=== PATIENT | female | born 1990 | race Caucasian/White ===

== ENCOUNTER 2017-05-23 20:25 | Emergency (ER) | payer OTHER ==
[2017-05-23 20:42] VITALS: BP 125/76; PULSE 78; TEMP 98.1; BMI 41.3
[2017-05-23] MEDS ORDERED: ACETAMINOPHEN 325 MG TABLET (FP) ONE (21:54)
[2017-05-23] MEDS ORDERED: ACETAMINOPHEN 500 MG TABLET (FP) PO ONE (21:58)
--- NOTE | 2017-05-23 22:03 | PDOC ---
History of Present Illness - General Chief Complaint: Chest Pain Stated Complaint: CHEST PAIN Time Seen by Provider: 05/23/17 21:45 History Source: Patient Exam Limitations: No Limitations - History of Present Illness Initial Comments: 05/23/17 21:59 27-year-old female presents to the ED with intermittent left-sided chest pain which she describes a sharp worsened with deep respiration or movement. Patient states has had this pain before but normally resolves within a few hours. Patient states has had this pain since this morning and denies any palpitations , dizziness, nausea, chest pressure, thyroid disease, recent change in weight, recent travel, calf pain, shortness of breath, smoking history, or recent dental surgery. Patient states took nothing for the pain and decided come to the ER today. Presenting Symptoms: Chest Pain Timing/Duration: reports: intermittent Severity/Quality: reports: moderate, sharp Location: reports: substernal Chest Pain Radiation: reports: no radiation Prior Chest Pain/Cardiac Workup: reports: No prior chest pain Associated Symptoms: Yes: Chest Pain/pressure Past History - Past Medical History Allergies/Adverse Reactions: Allergies Allergy/AdvReac Type Severity Reaction Status Date / Time No Known Allergies Allergy Verified 05/23/17 20:42 Home Medications: Ambulatory Orders NK [No Known Home Medication] 05/23/17 Other medical history: PCOS - Reproductive History LMP Normal: Yes Is Patient Now?: No - Psycho/Social/Smoking Cessation Hx Anxiety: No Suicidal Ideation: No Smoking History: Never smoked Have you smoked in the past 12 months: No Information on smoking cessation initiated: No Hx Alcohol Use: No Drug/Substance Use Hx: No Substance Use Type: None Patient Lives Alone: No Lives with/in: spouse/SO Review of Systems - Review of Systems Able to Perform ROS?: Yes Constitutional: No: Symptoms Reported HEENTM: No: Symptoms Reported Respiratory: No: Symptoms reported Cardiac (ROS): Yes: Chest Pain ABD/GI: No: Symptoms Reported Musculoskeletal: No: Symptoms Reported Integumentary: No: Symptoms Reported Neurological: No: Symptoms reported *Physical Exam - Vital Signs Last Vital Signs Temp Pulse Resp BP Pulse Ox 98.1 F 78 18 125/76 99 05/23/17 20:37 05/23/17 20:37 05/23/17 20:37 05/23/17 20:37 05/23/17 20:37 - Physical Exam General Appearance: Yes: Nourished, Appropriately Dressed. No: Apparent Distress HEENT: positive: EOMI, BEATRIZ, Pharynx Normal. negative: Pale Conjunctivae Neck: positive: Normal Thyroid Respiratory/Chest: positive: Chest Tender (mild left intercostal at midclavicular line and medially at the third and four rib), Lungs Clear, Normal Breath Sounds. negative: Respiratory Distress Cardiovascular: positive: Regular Rhythm, Regular Rate. negative: Murmur Gastrointestinal/Abdominal: positive: Soft. negative: Tenderness Extremity: negative: Pedal Edema Integumentary: positive: Normal Color, Warm, Moist. negative: Rash Neurologic: positive: Normal Mood/Affect, Motor Strength 5/5 (ambulatory) Medical Decision Making - Medical Decision Making 05/23/17 22:02 Patient with intermittent left-sided chest pain worse with deep breathing or movement. Patient had normal EKG and on exam had reproducible pain to the left side. Patient ordered for Tylenol with recommendations for chest wall muscle discomfort likely due to muscle skeletal pain. I did recommend to patient that she follow-up with a paint technician due to frequency. *DC/Admit/Observation/Transfer Diagnosis at time of Disposition: Chest wall pain - Discharge Dispostion Disposition: HOME Condition at time of disposition: Good - Referrals Referrals: Chelsea Barrios MD [Primary Care Provider] - Walter Huerta MD [Staff Physician] - - Patient Instructions Printed Discharge Instructions: DI for Musculoskeletal Pain, DI for Costochondritis Additional Instructions: Please take Tylenol every 6-8 hours for discomfort. Also may massage area for relief. May apply heating pad to the affected area and please follow up with referred paint technician.
--- NOTE | 2017-05-31 14:54 | EKG ---
Test Reason : Blood Pressure : / mmHG Vent. Rate : 087 BPM Atrial Rate : 087 BPM P-R Int : 164 ms QRS Dur : 090 ms QT Int : 390 ms P-R-T Axes : 033 036 018 degrees QTc Int : 469 ms NORMAL SINUS RHYTHM T WAVE ABNORMALITY, CONSIDER ANTERIOR ISCHEMIA ABNORMAL ECG NO PREVIOUS ECGS AVAILABLE Confirmed by RED DRAKE MD ([id number]) on 05/31/2017 2:53:40 PM Referred By: Confirmed By:RED DRAKE MD
== END 2017-05-23 22:04 | disposition home or self-care (01) ==
LOC: JERFT 20:25
DX: M94.0 Chondrocostal junction syndrome [Tietze] (principal); R07.89 Other chest pain
CPT/HCPCS: 93005; 93010; 99281-25